=== PATIENT | female | born 1950 | race Caucasian/White ===

== ENCOUNTER 2018-07-02 18:01 | Emergency (ER) | payer MEDICARE, MEDICAID ==
[~2018-07-02] VITALS: Ht 170.2 cm; Wt 50.7 kg
[~2018-07-02 18:01] MED LIST: ASPI-1265 PO; ATEN-169 PO; LISI40TA4 PO; OMEP40CA37 PO; PER5325T PO
[2018-07-02 18:07] VITALS: BP 158/80
== END 2018-07-02 20:19 | disposition home or self-care (01) ==
LOC: ER 18:01
DX: L98.8 Other specified disorders of the skin and subcutaneous tissue (principal); I10 Essential (primary) hypertension; Z98.890 Other specified postprocedural states; Z79.899 Other long term (current) drug therapy; Z79.82 Long term (current) use of aspirin
CPT/HCPCS: 73140; 99284

== ENCOUNTER 2018-10-12 20:56 | Emergency (ER) | payer MEDICARE, MEDICAID ==
[~2018-10-12] VITALS: Ht 170.2 cm; Wt 116.0 kg
[~2018-10-12 20:56] MED LIST changes: +ARIP2TAB37 PO; +ATOR20TA PO; +OXYB5TAB11 PO
[2018-10-12 22:17] LABS: BASOPHILS % (AUTO) 0.2 % (0-1); EOSINOPHILS # (AUTO) 0.3 X10'3 (0-0.9); EOSINOPHILS % (AUTO) 2.6 % (0-6); HEMATOCRIT 34.1 % (35.0-45.0); HEMOGLOBIN 10.7 g/dl (12.0-16.0); LYMPHOCYTES # (AUTO) 1.2 X10'3 (1.1-4.8); LYMPHOCYTES % (AUTO) 10.6 % (21-51); MEAN CORPUSCULAR HEMOGLOBIN 24.2 PG (27.0-31.0); MEAN CORPUSCULAR HGB CONC 31.5 % (33.0-36.5); MEAN CORPUSCULAR VOLUME 76.8 FL (78-98); MEAN PLATELET VOLUME 7.7 FL (7.4-10.4); MONOCYTES # (AUTO) 0.6 X10'3 (0-0.9); MONOCYTES % (AUTO) 5.2 % (2-12); NEUTROPHILS # (AUTO) 9.5 X10'3 (1.8-7.7); NEUTROPHILS % (AUTO) 81.4 % (42-75); PLATELET COUNT 465 X10'3 (140-440); RED BLOOD COUNT 4.43 X10'6 (4.20-5.60); RED CELL DISTRIBUTION WIDTH 17.4 % (11.5-14.5); WHITE BLOOD COUNT 11.6 X10'3 (4.5-11.0)
[2018-10-12] MEDS ORDERED: normal saline 1000ML IV soln IVB ONE (22:20)
[2018-10-12] MEDS ORDERED: ondansetron/PF 4mg/2ml inj IV ONE (22:20)
[2018-10-12] MEDS ORDERED: morphine 4 MG/ML inj SYRINge IV ONE (22:20)
[2018-10-12] MEDS ORDERED: iohexol 300mg/ml 100ml inj. ONE (22:29)
[2018-10-12 22:42] LABS: ALANINE AMINOTRANSFERASE 24 U/L (12-78); ALBUMIN 3.7 G/DL (3.4-5.0); ALKALINE PHOSPHATASE 99 IU/L (46-116); ANION GAP 8 (8-16); ASPARTATE AMINO TRANSFERASE 19 U/L (10-37); BILIRUBIN,TOTAL 0.3 MG/DL (0.1-1.0); BLOOD UREA NITROGEN 17 MG/DL (7-18); BUN/CREATININE RATIO 15.9 (6.6-38.0); CALCIUM 9.1 MG/DL (8.5-10.1); CHLORIDE 101 MMOL/L (99-107); CREATININE 1.07 MG/DL (0.40-0.90); GLUCOSE 136 MG/DL (70-104); LIPASE 151 U/L (73-393); POTASSIUM 3.8 MMOL/L (3.5-5.1); SODIUM 138 MMOL/L (135-145); TOTAL CARBON DIOXIDE 28.9 MMOL/L (24-32); TOTAL PROTEIN 7.5 G/DL (6.4-8.2); TROPONIN I < 0.04 NG/ML (0.0-0.05); eGFR 51 ML/MIN
[2018-10-12 22:48] LABS: PARTIAL THROMBOPLASTIN TIME 27 SECONDS (22-32)
[2018-10-12] MEDS ORDERED: HYDR-4383 PO (23:51)
[2018-10-12 23:59] VITALS: BP 160/87
== END 2018-10-13 00:10 | disposition home or self-care (01) ==
LOC: ER 20:57
DX: K80.80 Other cholelithiasis without obstruction (principal); R10.10 Upper abdominal pain, unspecified; I10 Essential (primary) hypertension; I88.0 Nonspecific mesenteric lymphadenitis; Z98.890 Other specified postprocedural states; Z79.899 Other long term (current) drug therapy; Z79.82 Long term (current) use of aspirin
CPT/HCPCS: 36415; 74177; 80053; 83690; 84484; 85025; 85730; 93005; 96374; 96375; 99284; J2270; J2405; J7030; Q9967; 96361

== ENCOUNTER 2018-10-14 07:40 | Inpatient (IN) | payer MEDICARE, MEDICAID ==
[~2018-10-14] VITALS: Ht 170.2 cm; Wt 108.0 kg
[~2018-10-14 07:40] MED LIST changes: +HYDR-4383 PO
[2018-10-14] MEDS ORDERED: morphine 4 MG/ML inj SYRINge IV ONE ×2 (08:10→11:45)
[2018-10-14] MEDS ORDERED: ondansetron/PF 4mg/2ml inj IV ONE ×2 (08:10→11:45)
[2018-10-14 08:38] LABS: BASOPHILS # (AUTO) 0.1 X10'3 (0-0.2); BASOPHILS % (AUTO) 0.7 % (0-1); EOSINOPHILS # (AUTO) 0.3 X10'3 (0-0.9); EOSINOPHILS % (AUTO) 3.2 % (0-6); HEMATOCRIT 31.8 % (35.0-45.0); HEMOGLOBIN 10.1 g/dl (12.0-16.0); LYMPHOCYTES % (AUTO) 10.2 % (21-51); MEAN CORPUSCULAR HEMOGLOBIN 24.4 PG (27.0-31.0); MEAN CORPUSCULAR HGB CONC 31.6 % (33.0-36.5); MEAN CORPUSCULAR VOLUME 77.1 FL (78-98); MEAN PLATELET VOLUME 7.3 FL (7.4-10.4); MONOCYTES # (AUTO) 0.6 X10'3 (0-0.9); MONOCYTES % (AUTO) 6.1 % (2-12); NEUTROPHILS # (AUTO) 8.2 X10'3 (1.8-7.7); NEUTROPHILS % (AUTO) 79.8 % (42-75); PLATELET COUNT 426 X10'3 (140-440); RED BLOOD COUNT 4.13 X10'6 (4.20-5.60); RED CELL DISTRIBUTION WIDTH 17.1 % (11.5-14.5); WHITE BLOOD COUNT 10.2 X10'3 (4.5-11.0)
[2018-10-14 08:40] LABS: CLARITY,URINE SLIGHTLY CLOUDY (Clear); COLOR,URINE YELLOW (Yellow); GLUCOSE, URINE NEGATIVE (Neg); KETONES,URINE NEGATIVE (Neg); LEUKOCYTE ESTERASE ,URINE NEGATIVE (Neg); NITRITES, URINE NEGATIVE (Neg); OCCULT BLOOD,URINE NEGATIVE (Neg); PH,URINE 5.5 (4.8-8.0); PROTEIN,URINE NEGATIVE (Neg); UROBILINOGEN,URINE 0.2 E.U/dL (0.2-1.0)
[2018-10-14 08:44] LABS: UA COLLECTION TYPE CLN CATCH MIDSTREAM
[2018-10-14 08:49] LABS: ALANINE AMINOTRANSFERASE 23 U/L (12-78); ALBUMIN 3.3 G/DL (3.4-5.0); ALBUMIN/GLOBULIN RATIO 0.9 (1.1-1.5); ALKALINE PHOSPHATASE 98 IU/L (46-116); ANION GAP 7 (8-16); ASPARTATE AMINO TRANSFERASE 17 U/L (10-37); BILIRUBIN,TOTAL 0.3 MG/DL (0.1-1.0); BLOOD UREA NITROGEN 16 MG/DL (7-18); BUN/CREATININE RATIO 13.8 (6.6-38.0); CALCIUM 8.9 MG/DL (8.5-10.1); CHLORIDE 103 MMOL/L (99-107); CREATININE 1.16 MG/DL (0.40-0.90); GLUCOSE 104 MG/DL (70-104); POTASSIUM 3.8 MMOL/L (3.5-5.1); SODIUM 138 MMOL/L (135-145); TOTAL PROTEIN 6.9 G/DL (6.4-8.2); eGFR 46 ML/MIN
[2018-10-14 08:49] LABS: BACTERIA,URINE 1+ /HPF (Neg); CAL OXALATE CRYSTALS 1+ /HPF (NEGATIVE); MUCUS STRANDS FEW /LPF (Neg); RBC,URINE 0-2 /HPF (0-2); SQUAMOUS EPITHELIAL CELL,UR MANY /LPF (FEW); WBC,URINE 0-4 /HPF (0-4)
[2018-10-14 08:51] LABS: LIPASE 107 U/L (73-393); TROPONIN I < 0.04 NG/ML (0.0-0.05)
[2018-10-14 09:10] LABS: INR 1.1 INR; PROTHROMBIN TIME 10.7 SECONDS (9.0-12.0)
[2018-10-14] MEDS ORDERED: ceFOXitin 2 GM ADDvantage bag 100 ML IV ONE (11:45)
[2018-10-14] MEDS ORDERED: ondansetron/PF 4mg/2ml inj IV PRN (15:35)
[2018-10-14] MEDS ORDERED: acetaminophen 325mg tablet PO PRN (15:35)
[2018-10-14] MEDS ORDERED: mag hydrox/Alum hydrox/simeth 30ml oral suspension PO PRN (15:35)
[2018-10-14] MEDS: metroNIDAZOLE-Flagyl 500mg/NS 100 ML IV SCH ×2 (16:03→23:40)
[2018-10-14] MEDS: atenolol 25mg tablet PO SCH (16:03)
[2018-10-14] MEDS: normal saline 1000ml 1,000 ML IV SCH (16:03)
[2018-10-14 17:40] VITALS: BP 172/73
[2018-10-14 20:00] VITALS: BP 135/52
[2018-10-14] MEDS: levoFLOXACIN-Levaquin 500mg/D5 100 ML IV SCH (20:03)
[2018-10-14] MEDS: diatr meglu/diatrizoate 30ml oral sol.-(3 dose) bottle PO SCH (21:44)
[2018-10-15] VITALS: BP 154/61
[2018-10-15] MEDS: morphine 2 MG/ML inj. syringe IV PRN (01:04)
[2018-10-15] MEDS: normal saline 1000ml 1,000 ML IV SCH ×2 (05:15→20:38)
[2018-10-15 06:02] LABS: HEMATOCRIT 28.4 % (35.0-45.0); HEMOGLOBIN 9.4 g/dl (12.0-16.0); MEAN CORPUSCULAR HGB CONC 33.1 % (33.0-36.5); MEAN CORPUSCULAR VOLUME 75.6 FL (78-98); RED BLOOD COUNT 3.76 X10'6 (4.20-5.60); WHITE BLOOD COUNT 9.1 X10'3 (4.5-11.0)
[2018-10-15 06:03] LABS: BASOPHILS # (AUTO) 0.1 X10'3 (0-0.2); BASOPHILS % (AUTO) 0.6 % (0-1); EOSINOPHILS # (AUTO) 0.4 X10'3 (0-0.9); EOSINOPHILS % (AUTO) 4.3 % (0-6); LYMPHOCYTES # (AUTO) 1.6 X10'3 (1.1-4.8); LYMPHOCYTES % (AUTO) 17.8 % (21-51); MEAN PLATELET VOLUME 7.9 FL (7.4-10.4); MONOCYTES # (AUTO) 0.8 X10'3 (0-0.9); MONOCYTES % (AUTO) 8.7 % (2-12); NEUTROPHILS # (AUTO) 6.2 X10'3 (1.8-7.7); NEUTROPHILS % (AUTO) 68.6 % (42-75); PLATELET COUNT 351 X10'3 (140-440); RED CELL DISTRIBUTION WIDTH 15.7 % (11.5-14.5)
[2018-10-15 06:44] LABS: ALANINE AMINOTRANSFERASE 19 U/L (12-78); ALKALINE PHOSPHATASE 92 IU/L (46-116); ANION GAP 9 (8-16); ASPARTATE AMINO TRANSFERASE 15 U/L (10-37); BILIRUBIN,TOTAL 0.3 MG/DL (0.1-1.0); BLOOD UREA NITROGEN 15 MG/DL (7-18); BUN/CREATININE RATIO 12.5 (6.6-38.0); CALCIUM 8.6 MG/DL (8.5-10.1); CHLORIDE 103 MMOL/L (99-107); GLUCOSE 87 MG/DL (70-104); SODIUM 140 MMOL/L (135-145); TOTAL CARBON DIOXIDE 28.1 MMOL/L (24-32); TOTAL PROTEIN 6.1 G/DL (6.4-8.2); eGFR 45 ML/MIN
[2018-10-15 07:04] VITALS: BP 147/69
[2018-10-15] MEDS: oxybutynin 5mg tablet PO SCH (07:58)
[2018-10-15] MEDS: lisinopril 20mg tablet PO SCH (07:58)
[2018-10-15] MEDS: atorvastatin 20mg tablet PO SCH (07:58)
[2018-10-15] MEDS: atenolol 25mg tablet PO SCH (07:59)
[2018-10-15] MEDS: diatr meglu/diatrizoate 30ml oral sol.-(3 dose) bottle PO SCH ×2 (08:00→09:05)
[2018-10-15] MEDS: metroNIDAZOLE-Flagyl 500mg/NS 100 ML IV SCH ×3 (08:02→23:53)
[2018-10-15] MEDS: levoFLOXACIN-Levaquin 500mg/D5 100 ML IV SCH (09:39)
[2018-10-15 12:15] VITALS: BP 134/59
[2018-10-15 13:21] VITALS: BP 147/67
[2018-10-15 17:21] VITALS: BP 147/67
[2018-10-15 20:00] VITALS: BP 150/58
[2018-10-15] MEDS: pantoprazole 40mg Tablet.DR PO SCH (20:37)
[2018-10-16] VITALS: BP 177/54
[2018-10-16] MEDS: morphine 2 MG/ML inj. syringe IV PRN (01:05)
[2018-10-16 05:35] LABS: BASOPHILS % (AUTO) 0.5 % (0-1); EOSINOPHILS # (AUTO) 0.3 X10'3 (0-0.9); EOSINOPHILS % (AUTO) 4.1 % (0-6); HEMATOCRIT 29.6 % (35.0-45.0); HEMOGLOBIN 9.3 g/dl (12.0-16.0); LYMPHOCYTES # (AUTO) 1.5 X10'3 (1.1-4.8); LYMPHOCYTES % (AUTO) 19.5 % (21-51); MEAN CORPUSCULAR HEMOGLOBIN 24.3 PG (27.0-31.0); MEAN CORPUSCULAR HGB CONC 31.5 % (33.0-36.5); MEAN CORPUSCULAR VOLUME 77.3 FL (78-98); MEAN PLATELET VOLUME 7.8 FL (7.4-10.4); MONOCYTES # (AUTO) 0.6 X10'3 (0-0.9); MONOCYTES % (AUTO) 7.2 % (2-12); NEUTROPHILS # (AUTO) 5.4 X10'3 (1.8-7.7); NEUTROPHILS % (AUTO) 68.7 % (42-75); PLATELET COUNT 390 X10'3 (140-440); RED BLOOD COUNT 3.83 X10'6 (4.20-5.60); RED CELL DISTRIBUTION WIDTH 16.5 % (11.5-14.5); WHITE BLOOD COUNT 7.9 X10'3 (4.5-11.0)
[2018-10-16 05:55] LABS: ALANINE AMINOTRANSFERASE 19 U/L (12-78); ALBUMIN/GLOBULIN RATIO 0.9 (1.1-1.5); ALKALINE PHOSPHATASE 92 IU/L (46-116); ANION GAP 10 (8-16); ASPARTATE AMINO TRANSFERASE 23 U/L (10-37); BILIRUBIN,TOTAL 0.4 MG/DL (0.1-1.0); BLOOD UREA NITROGEN 16 MG/DL (7-18); BUN/CREATININE RATIO 13.1 (6.6-38.0); CALCIUM 8.8 MG/DL (8.5-10.1); CHLORIDE 105 MMOL/L (99-107); CREATININE 1.22 MG/DL (0.40-0.90); GLUCOSE 85 MG/DL (70-104); SODIUM 142 MMOL/L (135-145); TOTAL CARBON DIOXIDE 27.3 MMOL/L (24-32); TOTAL PROTEIN 6.3 G/DL (6.4-8.2); eGFR 44 ML/MIN
[2018-10-16 07:14] VITALS: BP 153/73
[2018-10-16] MEDS: atenolol 25mg tablet PO SCH (08:33)
[2018-10-16] MEDS: atorvastatin 20mg tablet PO SCH (08:33)
[2018-10-16] MEDS: oxybutynin 5mg tablet PO SCH (08:33)
[2018-10-16] MEDS: pantoprazole 40mg Tablet.DR PO SCH (08:33)
[2018-10-16] MEDS: metroNIDAZOLE-Flagyl 500mg/NS 100 ML IV SCH (08:34)
[2018-10-16] MEDS: lisinopril 20mg tablet PO SCH (08:34)
[2018-10-16] MEDS: levoFLOXACIN-Levaquin 500mg/D5 100 ML IV SCH (10:05)
[2018-10-16] MEDS: normal saline 1000ml 1,000 ML IV SCH (10:28)
[2018-10-16 11:45] VITALS: BP 151/56
[2018-10-16 14:18] VITALS: BP 149/68
[2018-10-16] MEDS ORDERED: lactobacillus rhamnosus 10,000 MMU CELLS/CAPSULE PO SCH (20:00)
[2018-10-17] MEDS ORDERED: metroNIDAZOLE 500mg tablet PO SCH
[2018-10-17] MEDS ORDERED: levoFLOXACIN 500mg tablet PO SCH (11:00)
== END 2018-10-16 17:01 | disposition home or self-care (01) | DRG 445 ==
LOC: ER 07:41 → ED HOLD 15:34 → SUR 3N 17:34
PROVIDERS: ADMIT Internal Medicine; ATTEND Family Medicine
DX: K80.20 Calculus of gallbladder without cholecystitis without obstruction (principal); K65.4 Sclerosing mesenteritis; D47.9 Neoplasm of uncertain behavior of lymphoid, hematopoietic and related tissue, unspecified; E66.9 Obesity, unspecified; E78.5 Hyperlipidemia, unspecified; F32.9 Major depressive disorder, single episode, unspecified; R59.9 Enlarged lymph nodes, unspecified; M72.8 Other fibroblastic disorders; I10 Essential (primary) hypertension; K21.9 Gastro-esophageal reflux disease without esophagitis; Z79.899 Other long term (current) drug therapy; Z79.82 Long term (current) use of aspirin; Z71.3 Dietary counseling and surveillance; Z68.37 Body mass index [BMI] 37.0-37.9, adult
CPT/HCPCS: 36415; 71045; 74176; 76700; 80053; 81001; 83690; 83880; 84484; 85025; 85610; 87070; 93005; 96365; 96375; 96376; 99285; G0378; J0694; J1956; J2270; J2405; J3490; J7030; Q9963

== ENCOUNTER 2018-12-15 20:51 | Inpatient (IN) | payer MEDICARE, MEDICAID | END 2018-12-17 15:20 | disposition home or self-care (01) | LOC: ER 20:51 → ED HOLD 12-16 02:35 → SUR 3N 12-16 03:50 | PROC: 0DB68ZX Excision of Stomach, Via Natural or Artificial Opening Endoscopic, Diagnostic (ICD-10-PCS; principal; ~2018-12-15) | DX: K26.9 Duodenal ulcer, unspecified as acute or chronic, without hemorrhage or perforation (principal); D62 Acute posthemorrhagic anemia; K29.70 Gastritis, unspecified, without bleeding; R10.13 Epigastric pain; I10 Essential (primary) hypertension ==

== ENCOUNTER 2020-11-06 05:28 | Emergency (ER) | payer MEDICARE, MEDICAID ==
[~2020-11-06] VITALS: Ht 170.2 cm; Wt 136.3 kg
[~2020-11-06 05:28] MED LIST changes: -ASPI-1265 PO; +BUPR150T14 PO; -HYDR-4383 PO; +MAG30ORA PO; -OMEP40CA37 PO; -OXYB5TAB11 PO; +OXYB5TAB16 PO; +PANT40TA54 PO; -PER5325T PO
--- NOTE | 2020-11-06 05:44 | NUR ---
REPORTS TOOTH PAIN ALL NIGHT, MISSING TEETH LAST DENTAL VISIT OVER 10 YEAR
--- NOTE | 2020-11-06 06:38 | NUR ---
DR. LUNA AT BEDSIDE.
[2020-11-06] MEDS ORDERED: naproxen 500mg tablet PO ONE (06:40)
[2020-11-06] MEDS ORDERED: amox tr/potassium clavulanate 875/125mg TAB PO ONE (06:40)
[2020-11-06] MEDS ORDERED: HYDROcodone/acetaminophen 5mg/325mg tablet PO ONE (06:40)
[2020-11-06] MEDS ORDERED: LISI-600 PO (06:53)
[2020-11-06] MEDS ORDERED: NAPR-56 PO (06:53)
[2020-11-06] MEDS ORDERED: AMOX-422 PO (06:53)
[2020-11-06] MEDS ORDERED: lisinopril 10 MG tablet PO ONE (06:55)
[2020-11-06 07:47] VITALS: BP 189/77
== END 2020-11-06 07:50 | disposition home or self-care (01) ==
LOC: ER 05:29
DX: K04.7 Periapical abscess without sinus (principal); K08.89 Other specified disorders of teeth and supporting structures; K02.9 Dental caries, unspecified; I10 Essential (primary) hypertension; F17.200 Nicotine dependence, unspecified, uncomplicated; Z79.2 Long term (current) use of antibiotics; Z79.899 Other long term (current) drug therapy
CPT/HCPCS: 99284

== ENCOUNTER 2022-08-28 17:17 | Emergency (ER) | payer MEDICARE, MEDICAID ==
[~2022-08-28] VITALS: Ht 170.2 cm; Wt 90.0 kg
[~2022-08-28 17:17] MED LIST changes: +APIX5TAB3 PO; -ARIP2TAB37 PO; -ATEN-169 PO; +ATEN50TA8 PO; -ATOR20TA PO; +ATOR20TA66 PO; +BENA20TA82 PO; +BUPR-72 PO; -BUPR150T14 PO; +LACT1CAP26 PO; -LISI40TA4 PO; -MAG30ORA PO; +NOR5T PO; -OXYB5TAB16 PO; +SERT-432 PO
[2022-08-28] MEDS ORDERED: diltiazem 5mg/ml 5ml inj. IV ONE ×2 (18:00→18:55)
[2022-08-28] MEDS ORDERED: diltiazem-NS 100mg/100ml 100 ML IV ONE (18:00)
[2022-08-28 18:21] LABS: BASOPHILS # (AUTO) 0.1 X10'3 (0-0.2); BASOPHILS % (AUTO) 0.6 % (0-1); EOSINOPHILS # (AUTO) 0.2 X10'3 (0-0.9); EOSINOPHILS % (AUTO) 1.8 % (0-6); HEMATOCRIT 39.6 % (35.0-45.0); HEMOGLOBIN 12.8 g/dl (12.0-16.0); LYMPHOCYTES # (AUTO) 1.6 X10'3 (1.1-4.8); LYMPHOCYTES % (AUTO) 14.8 % (21-51); MEAN CORPUSCULAR HEMOGLOBIN 28.9 PG (27.0-31.0); MEAN CORPUSCULAR HGB CONC 32.4 g/dL (33.0-36.5); MEAN CORPUSCULAR VOLUME 89.2 FL (78-98); MEAN PLATELET VOLUME 7.4 FL (7.4-10.4); MONOCYTES # (AUTO) 0.7 X10'3 (0-0.9); MONOCYTES % (AUTO) 6.8 % (2-12); NEUTROPHILS # (AUTO) 8.1 X10'3 (1.8-7.7); PLATELET COUNT 411 X10'3 (140-440); RED BLOOD COUNT 4.44 X10'6 (4.20-5.60); RED CELL DISTRIBUTION WIDTH 15.7 % (11.5-14.5); WHITE BLOOD COUNT 10.7 X10'3 (4.5-11.0)
[2022-08-28 18:42] LABS: ALANINE AMINOTRANSFERASE 58 U/L (12-78); ALBUMIN 3.6 G/DL (3.4-5.0); ALBUMIN/GLOBULIN RATIO 0.9 (1.1-1.5); ALKALINE PHOSPHATASE 113 IU/L (46-116); ANION GAP 10 (8-16); ASPARTATE AMINO TRANSFERASE 41 U/L (10-37); BILIRUBIN,TOTAL 0.6 MG/DL (0.1-1.0); BLOOD UREA NITROGEN 18 MG/DL (7-18); BUN/CREATININE RATIO 12.1 (6.6-38.0); CALCIUM 9.6 MG/DL (8.5-10.1); CHLORIDE 107 MMOL/L (99-107); CREATININE 1.49 MG/DL (0.40-0.90); GLUCOSE 119 MG/DL (70-104); POTASSIUM 4.4 MMOL/L (3.5-5.1); SODIUM 142 MMOL/L (135-145); TOTAL CARBON DIOXIDE 24.7 MMOL/L (24-32); TOTAL PROTEIN 7.4 G/DL (6.4-8.2); eGFR 34 ML/MIN
[2022-08-28] MEDS ORDERED: etomidate 2mg/ml inj. IV ONE (19:30)
[2022-08-28 19:41] LABS: MAGNESIUM 2.1 MG/DL (1.5-2.4)
[2022-08-28 21:04] VITALS: BP 131/74
== END 2022-08-28 21:07 | disposition home or self-care (01) ==
LOC: ER 17:17
DX: I48.91 Unspecified atrial fibrillation (principal); F03.90 Unspecified dementia, unspecified severity, without behavioral disturbance, psychotic disturbance, mood disturbance, and anxiety; Z79.899 Other long term (current) drug therapy
CPT/HCPCS: 36415; 71045; 80053; 83735; 83880; 84484; 85025; 92960; 93005; 96365; 96366; 96375; 96376; 99285; J3490; J7030; 94760; A4615; A4620

== ENCOUNTER 2022-08-29 08:46 | Emergency (ER) | payer MEDICARE, MEDICAID ==
[~2022-08-29] VITALS: Ht 170.2 cm; Wt 90.0 kg
[2022-08-29 11:07] LABS: BASOPHILS % (AUTO) 0.3 % (0-1); EOSINOPHILS # (AUTO) 0.1 X10'3 (0-0.9); EOSINOPHILS % (AUTO) 1.1 % (0-6); HEMATOCRIT 39.5 % (35.0-45.0); HEMOGLOBIN 13.1 g/dl (12.0-16.0); LYMPHOCYTES # (AUTO) 1.4 X10'3 (1.1-4.8); LYMPHOCYTES % (AUTO) 13.8 % (21-51); MEAN CORPUSCULAR HEMOGLOBIN 29.3 PG (27.0-31.0); MEAN CORPUSCULAR HGB CONC 33.1 g/dL (33.0-36.5); MEAN CORPUSCULAR VOLUME 88.5 FL (78-98); MEAN PLATELET VOLUME 7.5 FL (7.4-10.4); MONOCYTES # (AUTO) 0.7 X10'3 (0-0.9); MONOCYTES % (AUTO) 7.1 % (2-12); NEUTROPHILS # (AUTO) 8.1 X10'3 (1.8-7.7); NEUTROPHILS % (AUTO) 77.7 % (42-75); PLATELET COUNT 378 X10'3 (140-440); RED BLOOD COUNT 4.46 X10'6 (4.20-5.60); RED CELL DISTRIBUTION WIDTH 15.4 % (11.5-14.5); WHITE BLOOD COUNT 10.4 X10'3 (4.5-11.0)
[2022-08-29 11:17] LABS: ALANINE AMINOTRANSFERASE 60 U/L (12-78); ALBUMIN 3.7 G/DL (3.4-5.0); ALKALINE PHOSPHATASE 121 IU/L (46-116); ANION GAP 11 (8-16); ASPARTATE AMINO TRANSFERASE 46 U/L (10-37); BILIRUBIN,TOTAL 0.8 MG/DL (0.1-1.0); BLOOD UREA NITROGEN 21 MG/DL (7-18); BUN/CREATININE RATIO 13.6 (6.6-38.0); CALCIUM 9.4 MG/DL (8.5-10.1); CHLORIDE 106 MMOL/L (99-107); CREATININE 1.54 MG/DL (0.40-0.90); GLUCOSE 94 MG/DL (70-104); POTASSIUM 4.8 MMOL/L (3.5-5.1); SODIUM 143 MMOL/L (135-145); TOTAL CARBON DIOXIDE 26.5 MMOL/L (24-32); TOTAL PROTEIN 7.5 G/DL (6.4-8.2); eGFR 33 ML/MIN
[2022-08-29] MEDS ORDERED: furosemide 20MG tablet PO ONE (13:45)
[2022-08-29] MEDS ORDERED: metoprolol succinate 25mg (24-HOUR) SR. Tablet PO ONE (13:45)
[2022-08-29 15:14] VITALS: BP 139/88
== END 2022-08-29 14:45 | disposition home or self-care (01) ==
LOC: ER 08:47
DX: R06.02 Shortness of breath (principal); I10 Essential (primary) hypertension
CPT/HCPCS: 36415; 71045; 80053; 83880; 84484; 85025; 93005; 99285

== ENCOUNTER 2022-09-22 13:08 | Inpatient (IN) | payer MEDICARE, MEDICAID ==
[~2022-09-22] VITALS: Ht 170.2 cm; Wt 113.6 kg
[2022-09-22] MEDS ORDERED: pantoprazole 40MG/NS 100ML BAG 100 ML IV ONE (15:35)
[2022-09-22] MEDS ORDERED: normal saline 1000ML IV soln IVB ONE (15:35)
[2022-09-22 16:01] LABS: BASOPHILS # (AUTO) 0.1 X10'3 (0-0.2); BASOPHILS % (AUTO) 0.5 % (0-1); EOSINOPHILS # (AUTO) 0.2 X10'3 (0-0.9); EOSINOPHILS % (AUTO) 1.5 % (0-6); HEMATOCRIT 37.7 % (35.0-45.0); HEMOGLOBIN 12.4 g/dl (12.0-16.0); LYMPHOCYTES # (AUTO) 1.1 X10'3 (1.1-4.8); LYMPHOCYTES % (AUTO) 9.8 % (21-51); MEAN CORPUSCULAR HEMOGLOBIN 28.2 PG (27.0-31.0); MEAN CORPUSCULAR HGB CONC 32.9 g/dL (33.0-36.5); MEAN CORPUSCULAR VOLUME 85.7 FL (78-98); MEAN PLATELET VOLUME 7.8 FL (7.4-10.4); MONOCYTES # (AUTO) 0.8 X10'3 (0-0.9); MONOCYTES % (AUTO) 7.3 % (2-12); NEUTROPHILS # (AUTO) 9.1 X10'3 (1.8-7.7); NEUTROPHILS % (AUTO) 80.9 % (42-75); PLATELET COUNT 332 X10'3 (140-440); RED CELL DISTRIBUTION WIDTH 16.2 % (11.5-14.5); WHITE BLOOD COUNT 11.3 X10'3 (4.5-11.0)
[2022-09-22 16:13] LABS: ALANINE AMINOTRANSFERASE 19 U/L (12-78); ALBUMIN 3.4 G/DL (3.4-5.0); ALBUMIN/GLOBULIN RATIO 0.9 (1.1-1.5); ALKALINE PHOSPHATASE 98 IU/L (46-116); ANION GAP 6 (8-16); ASPARTATE AMINO TRANSFERASE 25 U/L (10-37); BILIRUBIN,TOTAL 0.5 MG/DL (0.1-1.0); BLOOD UREA NITROGEN 16 MG/DL (7-18); BUN/CREATININE RATIO 13.3 (6.6-38.0); CALCIUM 9.1 MG/DL (8.5-10.1); CHLORIDE 104 MMOL/L (99-107); GLUCOSE 101 MG/DL (70-104); POTASSIUM 3.9 MMOL/L (3.5-5.1); SODIUM 141 MMOL/L (135-145); TOTAL CARBON DIOXIDE 31.2 MMOL/L (24-32); eGFR 44 ML/MIN
[2022-09-22] MEDS ORDERED: acetaminophen 325mg tablet PO PRN ×2 (20:10)
[2022-09-22] MEDS ORDERED: bisacodyl 10mg suppository rectal RC PRN (20:10)
[2022-09-22] MEDS ORDERED: diphenhydrAMINE 25mg capsule PO PRN (20:10)
[2022-09-22] MEDS ORDERED: magnesium hydroxide 30ml (MOM) UD suspension PO PRN (20:10)
[2022-09-22] MEDS ORDERED: acetaminophen 650mg rectal suppository RC PRN (20:10)
[2022-09-22] MEDS ORDERED: ondansetron 4mg rapidly disintigrating tab PO PRN (20:10)
[2022-09-22] MEDS ORDERED: HYDROmorphone inj. 0.5 MG/0.5 ML DISP.SYRIN IV PRN (20:10)
[2022-09-22] MEDS: normal saline 1000ml 1,000 ML IV SCH (20:10)
[2022-09-22] MEDS ORDERED: ondansetron/PF 4mg/2ml inj IV PRN (20:10)
[2022-09-22] MEDS ORDERED: HYDROcodone/acetaminophen 5mg/325mg tablet PO PRN (20:10)
[2022-09-22] MEDS ORDERED: mag hydrox/Alum hydrox/simeth 30ml oral suspension PO PRN (20:10)
[2022-09-22] MEDS ORDERED: morphine 2 MG/ML inj. syringe IV PRN ×2 (20:10)
[2022-09-22] MEDS ORDERED: diphenhydrAMINE 50 mg/ml inj IV PRN (20:10)
[2022-09-22] MEDS ORDERED: diltiazem-NS 100mg/100ml 100 ML IV SCH (20:15)
[2022-09-22 20:33] LABS: CLARITY,URINE SLIGHTLY CLOUDY (Clear); COLOR,URINE YELLOW (Yellow); GLUCOSE, URINE NEGATIVE (Neg); KETONES,URINE TRACE mg/dl (Neg); LEUKOCYTE ESTERASE ,URINE NEGATIVE (Neg); NITRITES, URINE NEGATIVE (Neg); OCCULT BLOOD,URINE NEGATIVE (Neg); PH,URINE 8.5 (4.8-8.0); PROTEIN,URINE NEGATIVE (Neg); UROBILINOGEN,URINE 0.2 E.U/dL (0.2-1.0)
[2022-09-22 20:36] LABS: UA COLLECTION TYPE CLN CATCH MIDSTREAM
[2022-09-22 20:38] LABS: AMORPHOUS PHOSPHATES 3+; BACTERIA,URINE 1+ /HPF (Neg); RBC,URINE 0-2 /HPF (0-2); SQUAMOUS EPITHELIAL CELL,UR FEW /LPF (FEW); WBC,URINE 0-4 /HPF (0-4)
[2022-09-22 20:58] LABS: URINE AMPHETAMINE SCREEN NEGATIVE (Neg); URINE BARBITUATE SCREEN NEGATIVE (Neg); URINE BENZODIAZEPINES SCREEN NEGATIVE (Neg); URINE CANNABINOID SCREEN NEGATIVE (Neg); URINE COCAINE SCREEN NEGATIVE (Neg); URINE METHADONE SCREEN NEGATIVE (Neg); URINE OPIATE SCREEN NEGATIVE (Neg); URINE PHENCYCLIDINE SCREEN NEGATIVE (Neg)
[2022-09-22 21:20] LABS: CREATINE KINASE 27 U/L (26-192); LIPASE 72 U/L (73-393); MAGNESIUM 2.2 MG/DL (1.5-2.4); PHOSPHORUS 3.3 MG/DL (2.3-4.5)
[2022-09-22] MEDS: niCARDipine-NS 40mg/200ml IVPB 200 ML IV SCH (22:30)
[2022-09-22] MEDS ORDERED: ATEN-27 PO (23:19)
[2022-09-22] MEDS ORDERED: AMLO5TAB16 PO (23:26)
[2022-09-22] MEDS ORDERED: LACT1CAP26 PO (23:27)
--- NOTE | 2022-09-23 03:15 | NUR ---
PT WEANED OFF NICARDIPINE GTT AT THIS TIME FOR SPB < 140
[2022-09-23 03:44] LABS: BASOPHILS % (AUTO) 0.4 % (0-1); EOSINOPHILS # (AUTO) 0.2 X10'3 (0-0.9); HEMATOCRIT 41.8 % (35.0-45.0); HEMOGLOBIN 13.4 g/dl (12.0-16.0); LYMPHOCYTES # (AUTO) 1.6 X10'3 (1.1-4.8); LYMPHOCYTES % (AUTO) 13.2 % (21-51); MEAN CORPUSCULAR HEMOGLOBIN 27.7 PG (27.0-31.0); MEAN CORPUSCULAR VOLUME 86.5 FL (78-98); MEAN PLATELET VOLUME 7.9 FL (7.4-10.4); MONOCYTES % (AUTO) 8.5 % (2-12); NEUTROPHILS % (AUTO) 75.9 % (42-75); PLATELET COUNT 342 X10'3 (140-440); RED BLOOD COUNT 4.84 X10'6 (4.20-5.60); WHITE BLOOD COUNT 11.9 X10'3 (4.5-11.0)
[2022-09-23 04:09] LABS: ALANINE AMINOTRANSFERASE 17 U/L (12-78); ALBUMIN 3.6 G/DL (3.4-5.0); ALBUMIN/GLOBULIN RATIO 0.9 (1.1-1.5); ALKALINE PHOSPHATASE 97 IU/L (46-116); ANION GAP 13 (8-16); ASPARTATE AMINO TRANSFERASE 24 U/L (10-37); BILIRUBIN,TOTAL 0.7 MG/DL (0.1-1.0); BLOOD UREA NITROGEN 12 MG/DL (7-18); BUN/CREATININE RATIO 11.1 (6.6-38.0); CALCIUM 9.3 MG/DL (8.5-10.1); CHLORIDE 105 MMOL/L (99-107); CREATININE 1.08 MG/DL (0.40-0.90); GLUCOSE 111 MG/DL (70-104); POTASSIUM 3.5 MMOL/L (3.5-5.1); SODIUM 143 MMOL/L (135-145); TOTAL CARBON DIOXIDE 25.1 MMOL/L (24-32); TOTAL PROTEIN 7.5 G/DL (6.4-8.2); eGFR 50 ML/MIN
--- NOTE | 2022-09-23 06:00 | NUR ---
PT ATTEMPTING TO CLIM OUT OF BED, PT ASST. BACK TO BED AND UPDATED, PT ADVISED TO CALL FOR ASST. AND CALL LIGHT ATTACHED TO GOWN
[2022-09-23] MEDS ORDERED: lisinopril 20mg tablet PO SCH (08:00)
[2022-09-23] MEDS ORDERED: docusate sod 100mg capsule PO SCH (08:00)
[2022-09-23] MEDS: pantoprazole 40MG/NS 100ML BAG 100 ML IV SCH ×2 (08:00→22:14)
[2022-09-23] MEDS ORDERED: pantoprazole 40mg Tablet.DR PO SCH (08:00)
[2022-09-23] MEDS: niCARDipine-NS 40mg/200ml IVPB 200 ML IV SCH (08:01)
[2022-09-23] MEDS: atorvastatin 20mg tablet PO SCH (08:51)
[2022-09-23] MEDS: amLODIPine 5mg tablet PO SCH (08:51)
[2022-09-23] MEDS: buPROPion SR 150mg tablet PO SCH ×2 (08:53→20:55)
[2022-09-23] MEDS: sertraline 25mg tablet PO SCH (08:54)
[2022-09-23] MEDS ORDERED: ALPRAZolam 0.5mg tablet PO PRN (10:20)
--- NOTE | 2022-09-23 19:20 | NUR ---
Patient in room ED 9. I have received report from DRALIN HUFFMAN RN and had the opportunity to ask questions and assume patient care. Addendum: 09/23/22 at 1921 by Toya Whyte RN Amended: Links added.
[2022-09-23 19:30] VITALS: BP 186/87
[2022-09-23] MEDS: normal saline 1000ml 1,000 ML IV SCH (20:14)
[2022-09-23] MEDS: metroNIDAZOLE-Flagyl 500mg/NS 100 ML IV SCH (20:55)
[2022-09-23] MEDS: temazepam 15mg capsule PO PRN (20:55)
[2022-09-23] MEDS: atenolol 25mg tablet PO SCH (21:28)
[2022-09-23 22:00] VITALS: BP 147/57
[2022-09-23] MEDS: ciprofloxacin lact 400MG/200ML 200 ML IV SCH (22:13)
[2022-09-24 02:00] VITALS: BP 140/52
--- NOTE | 2022-09-24 02:39 | NUR ---
Student documentation: I have reviewed and agree with all interventions, assessments performed and documented by LEXIS PHELPS RN STUDENT. Addendum: 09/24/22 at 0239 by Toya Whyte RN Amended: Links added.
--- NOTE | 2022-09-24 02:41 | NUR ---
Student Medication Administration: For this medication-pass time frame, all medication were reviewed, dispensed, administered and documented per hospital policy by KRISTAN CERVANTES RN STUDENT. Addendum: 09/24/22 at 0243 by Toya Whyte RN Amended: Links added.
--- NOTE | 2022-09-24 06:14 | NUR ---
Problems reprioritized. Patient report given, questions answered & plan of care reviewed with ZEE MCRAE. Addendum: 09/24/22 at 0615 by Toya Whyte RN Amended: Links added.
[2022-09-24 06:16] LABS: BASOPHILS # (AUTO) 0.1 X10'3 (0-0.2); BASOPHILS % (AUTO) 0.7 % (0-1); EOSINOPHILS # (AUTO) 0.2 X10'3 (0-0.9); EOSINOPHILS % (AUTO) 2.4 % (0-6); HEMOGLOBIN 13.1 g/dl (12.0-16.0); LYMPHOCYTES % (AUTO) 10.5 % (21-51); MEAN CORPUSCULAR HEMOGLOBIN 27.7 PG (27.0-31.0); MEAN CORPUSCULAR HGB CONC 32.1 g/dL (33.0-36.5); MEAN CORPUSCULAR VOLUME 86.3 FL (78-98); MONOCYTES # (AUTO) 0.7 X10'3 (0-0.9); MONOCYTES % (AUTO) 7.9 % (2-12); NEUTROPHILS # (AUTO) 7.3 X10'3 (1.8-7.7); NEUTROPHILS % (AUTO) 78.5 % (42-75); PLATELET COUNT 356 X10'3 (140-440); RED BLOOD COUNT 4.75 X10'6 (4.20-5.60); RED CELL DISTRIBUTION WIDTH 16.1 % (11.5-14.5); WHITE BLOOD COUNT 9.3 X10'3 (4.5-11.0)
--- NOTE | 2022-09-24 06:36 | NUR ---
Patient in room [facility] 348. I have received report from ZEE Pittman and had the opportunity to ask questions and assume patient care.
[2022-09-24 06:41] VITALS: BP 152/65
[2022-09-24 06:54] LABS: ALANINE AMINOTRANSFERASE 18 U/L (12-78); ALBUMIN 3.4 G/DL (3.4-5.0); ALBUMIN/GLOBULIN RATIO 0.9 (1.1-1.5); ALKALINE PHOSPHATASE 97 IU/L (46-116); ANION GAP 9 (8-16); ASPARTATE AMINO TRANSFERASE 25 U/L (10-37); BILIRUBIN,TOTAL 0.7 MG/DL (0.1-1.0); BLOOD UREA NITROGEN 16 MG/DL (7-18); BUN/CREATININE RATIO 14.2 (6.6-38.0); CALCIUM 9.5 MG/DL (8.5-10.1); CHLORIDE 104 MMOL/L (99-107); CREATININE 1.13 MG/DL (0.40-0.90); GLUCOSE 89 MG/DL (70-104); POTASSIUM 3.7 MMOL/L (3.5-5.1); SODIUM 139 MMOL/L (135-145); TOTAL CARBON DIOXIDE 26.5 MMOL/L (24-32); TOTAL PROTEIN 7.1 G/DL (6.4-8.2); eGFR 47 ML/MIN
[2022-09-24] MEDS: buPROPion SR 150mg tablet PO SCH ×2 (07:43→20:06)
[2022-09-24] MEDS: sertraline 25mg tablet PO SCH (07:43)
[2022-09-24] MEDS: atorvastatin 20mg tablet PO SCH (07:44)
[2022-09-24] MEDS: amLODIPine 5mg tablet PO SCH (07:44)
[2022-09-24] MEDS: lisinopril 20mg tablet PO SCH (07:44)
[2022-09-24] MEDS: pantoprazole 40MG/NS 100ML BAG 100 ML IV SCH (07:45)
[2022-09-24] MEDS: metroNIDAZOLE-Flagyl 500mg/NS 100 ML IV SCH (07:45)
[2022-09-24] MEDS: ciprofloxacin lact 400MG/200ML 200 ML IV SCH (08:45)
--- NOTE | 2022-09-24 09:35 | NUR ---
Patient pulled out x2 IV and refusing to restart IV. Explained to patient need for IV access and abx. Patient continues to refuse. Patient glaring at staff, pouting lips and mostly not speaking when asked questions. Patient will nod head or shake head. Dr. Zheng aware. Patients daughter was also in to see patient and tearfully stated "shes's in a bad mood. She does this sometimes it's her alzheimers." Will continue to monitor.
--- NOTE | 2022-09-24 11:27 | NUR ---
Patient appears to be agitated. Getting up out of bed and tabs alarm going off. When asked if patient needed any assistance patient does not reply and grabs things from table aggressively. Educated patient tabs alarm placed with safety and to use call button if she needed anything. Patient rolled eyes and turned head away. Will continue to monitor.
--- NOTE | 2022-09-24 12:36 | NUR ---
Patient continues to refuse to have IV inserted.
[2022-09-24 12:38] VITALS: BP 169/80
--- NOTE | 2022-09-24 13:39 | NUR ---
Patient refusing to have tele monitor removed.
--- NOTE | 2022-09-24 13:44 | NUR ---
PAGER ID: [phone] MESSAGE: 348A- TreySuhailLana- pt daughter states pt needs higher level of care than she can provide at home. She is hoping to get her into a "memory care center."- Rom [id number]
--- NOTE | 2022-09-24 13:56 | NUR ---
PAGER ID: [phone] MESSAGE: 348A- Lana Yang- pt agitated, aggressive and packing her things wanting to leave. Will not take her xanax po and she has not IV access- Rom [id number]
[2022-09-24] MEDS ORDERED: LORazepam 0.5 MG tablet PO PRN (14:15)
[2022-09-24] MEDS ORDERED: LORazepam 2 mg/ml vial IV PRN (14:15)
[2022-09-24] MEDS ORDERED: ziprasidone IM 20mg inj **IM only IM PRN (14:15)
--- NOTE | 2022-09-24 14:20 | NUR ---
PAGER ID: [phone] MESSAGE: 348A- Lana Yang- will not take ativan PO and has no IV access. Refusing everything. - Rom [id number]
[2022-09-24 18:00] VITALS: BP 167/85
--- NOTE | 2022-09-24 18:16 | NUR ---
Problems reprioritized. Patient report given, questions answered & plan of care reviewed with ZEE Pittman.
--- NOTE | 2022-09-24 18:48 | NUR ---
Patient in room [facility] 348. I have received report from ZEE MCRAE and had the opportunity to ask questions and assume patient care. Addendum: 09/24/22 at 1849 by Toya Whyte RN Amended: Links added.
[2022-09-24] MEDS: atenolol 25mg tablet PO SCH (20:06)
[2022-09-24] MEDS: apixaban 5mg tablet PO SCH (20:07)
[2022-09-24] MEDS: temazepam 15mg capsule PO PRN (20:07)
[2022-09-24 22:00] VITALS: BP 170/72
[2022-09-25] MEDS: normal saline 1000ml 1,000 ML IV SCH (00:14)
--- NOTE | 2022-09-25 00:52 | NUR ---
pt awake alert and pleasant without s&s of distress at this time.
--- NOTE | 2022-09-25 02:58 | NUR ---
Student documentation: I have reviewed and agree with all interventions, assessments performed and documented by KRISTAN CERVANTES RN STUDENT.Student Medication Administration: For this medication-pass time frame, all medication were reviewed, dispensed, administered and documented per hospital policy by KRISTAN CERVANTES RN STUDENT. Addendum: 09/25/22 at 0259 by Toya Whyte RN Amended: Links added.
--- NOTE | 2022-09-25 06:02 | NUR ---
Problems reprioritized. Patient report given, questions answered & plan of care reviewed with ZEE MCRAE. Addendum: 09/25/22 at 0603 by Toya Whyte RN Amended: Links added.
--- NOTE | 2022-09-25 06:10 | NUR ---
Patient in room [facility] 348. I have received report from ZEE KING and had the opportunity to ask questions and assume patient care.
[2022-09-25 06:25] LABS: BASOPHILS # (AUTO) 0.1 X10'3 (0-0.2); BASOPHILS % (AUTO) 0.8 % (0-1); EOSINOPHILS # (AUTO) 0.3 X10'3 (0-0.9); EOSINOPHILS % (AUTO) 3.4 % (0-6); HEMATOCRIT 38.9 % (35.0-45.0); HEMOGLOBIN 12.9 g/dl (12.0-16.0); LYMPHOCYTES # (AUTO) 1.5 X10'3 (1.1-4.8); MEAN CORPUSCULAR HEMOGLOBIN 28.6 PG (27.0-31.0); MEAN CORPUSCULAR HGB CONC 33.1 g/dL (33.0-36.5); MEAN CORPUSCULAR VOLUME 86.3 FL (78-98); MEAN PLATELET VOLUME 7.7 FL (7.4-10.4); MONOCYTES # (AUTO) 0.8 X10'3 (0-0.9); NEUTROPHILS # (AUTO) 5.8 X10'3 (1.8-7.7); NEUTROPHILS % (AUTO) 68.8 % (42-75); PLATELET COUNT 338 X10'3 (140-440); RED CELL DISTRIBUTION WIDTH 16.2 % (11.5-14.5); WHITE BLOOD COUNT 8.5 X10'3 (4.5-11.0)
[2022-09-25 06:29] VITALS: BP 170/96
[2022-09-25 06:37] LABS: ALANINE AMINOTRANSFERASE 17 U/L (12-78); ALBUMIN 3.3 G/DL (3.4-5.0); ALBUMIN/GLOBULIN RATIO 0.9 (1.1-1.5); ALKALINE PHOSPHATASE 92 IU/L (46-116); ANION GAP 10 (8-16); ASPARTATE AMINO TRANSFERASE 26 U/L (10-37); BILIRUBIN,TOTAL 0.5 MG/DL (0.1-1.0); BLOOD UREA NITROGEN 22 MG/DL (7-18); BUN/CREATININE RATIO 17.2 (6.6-38.0); CALCIUM 9.1 MG/DL (8.5-10.1); CHLORIDE 104 MMOL/L (99-107); CREATININE 1.28 MG/DL (0.40-0.90); GLUCOSE 82 MG/DL (70-104); POTASSIUM 3.6 MMOL/L (3.5-5.1); SODIUM 141 MMOL/L (135-145); TOTAL CARBON DIOXIDE 27.2 MMOL/L (24-32); TOTAL PROTEIN 6.8 G/DL (6.4-8.2); eGFR 41 ML/MIN
[2022-09-25] MEDS: atorvastatin 20mg tablet PO SCH (07:01)
[2022-09-25] MEDS: apixaban 5mg tablet PO SCH ×2 (07:01→21:00)
[2022-09-25] MEDS: clindamycin 150mg capsule PO SCH ×3 (07:01→20:59)
[2022-09-25] MEDS: buPROPion SR 150mg tablet PO SCH ×2 (07:01→20:59)
[2022-09-25] MEDS: amLODIPine 5mg tablet PO SCH (07:02)
[2022-09-25] MEDS: sertraline 25mg tablet PO SCH (07:02)
[2022-09-25] MEDS: lisinopril 20mg tablet PO SCH (07:02)
[2022-09-25] MEDS: pantoprazole 40mg Tablet.DR PO SCH ×2 (07:03→21:00)
[2022-09-25] MEDS: HYDROcodone/acetaminophen 10/325mg tab PO PRN ×2 (10:02→20:59)
[2022-09-25 11:59] VITALS: BP 152/79
[2022-09-25 18:00] VITALS: BP 140/80
--- NOTE | 2022-09-25 18:25 | NUR ---
Problems reprioritized. Patient report given, questions answered & plan of care reviewed with ZEE Keys.
[2022-09-25 20:57] VITALS: BP 166/71
[2022-09-25] MEDS: atenolol 25mg tablet PO SCH (20:59)
[2022-09-25 22:00] VITALS: BP 148/67
[2022-09-26 06:00] VITALS: BP 161/77
[2022-09-26 06:35] LABS: BASOPHILS # (AUTO) 0.1 X10'3 (0-0.2); BASOPHILS % (AUTO) 0.8 % (0-1); EOSINOPHILS # (AUTO) 0.3 X10'3 (0-0.9); EOSINOPHILS % (AUTO) 3.6 % (0-6); HEMATOCRIT 39.3 % (35.0-45.0); HEMOGLOBIN 12.6 g/dl (12.0-16.0); LYMPHOCYTES # (AUTO) 1.7 X10'3 (1.1-4.8); MEAN CORPUSCULAR HEMOGLOBIN 27.7 PG (27.0-31.0); MEAN CORPUSCULAR HGB CONC 32.1 g/dL (33.0-36.5); MEAN CORPUSCULAR VOLUME 86.3 FL (78-98); MONOCYTES # (AUTO) 0.8 X10'3 (0-0.9); NEUTROPHILS % (AUTO) 67.6 % (42-75); PLATELET COUNT 358 X10'3 (140-440); RED BLOOD COUNT 4.55 X10'6 (4.20-5.60); RED CELL DISTRIBUTION WIDTH 16.1 % (11.5-14.5); WHITE BLOOD COUNT 8.9 X10'3 (4.5-11.0)
--- NOTE | 2022-09-26 06:43 | NUR ---
Problems reprioritized. Patient report given, questions answered & plan of care reviewed with ZEE HI.
--- NOTE | 2022-09-26 06:48 | NUR ---
Patient in room [facility] 348. I have received report from Ludmila and had the opportunity to ask questions and assume patient care.
[2022-09-26 07:11] LABS: ALANINE AMINOTRANSFERASE 17 U/L (12-78); ALBUMIN 3.1 G/DL (3.4-5.0); ALBUMIN/GLOBULIN RATIO 0.9 (1.1-1.5); ALKALINE PHOSPHATASE 95 IU/L (46-116); ANION GAP 9 (8-16); ASPARTATE AMINO TRANSFERASE 24 U/L (10-37); BILIRUBIN,TOTAL 0.4 MG/DL (0.1-1.0); BLOOD UREA NITROGEN 24 MG/DL (7-18); CALCIUM 9.1 MG/DL (8.5-10.1); CHLORIDE 105 MMOL/L (99-107); GLUCOSE 101 MG/DL (70-104); POTASSIUM 3.7 MMOL/L (3.5-5.1); SODIUM 141 MMOL/L (135-145); TOTAL CARBON DIOXIDE 26.6 MMOL/L (24-32); TOTAL PROTEIN 6.6 G/DL (6.4-8.2); eGFR 44 ML/MIN
[2022-09-26] MEDS: clindamycin 150mg capsule PO SCH ×3 (09:00→20:43)
[2022-09-26] MEDS: pantoprazole 40mg Tablet.DR PO SCH ×2 (09:00→20:43)
[2022-09-26] MEDS: apixaban 5mg tablet PO SCH ×2 (09:00→20:44)
[2022-09-26] MEDS: amLODIPine 5mg tablet PO SCH (09:01)
[2022-09-26] MEDS: atorvastatin 20mg tablet PO SCH (09:01)
[2022-09-26] MEDS: sertraline 25mg tablet PO SCH (09:01)
[2022-09-26] MEDS: lisinopril 20mg tablet PO SCH (09:01)
[2022-09-26] MEDS: buPROPion SR 150mg tablet PO SCH ×2 (09:02→20:43)
[2022-09-26 11:00] VITALS: BP 135/53
[2022-09-26 18:00] VITALS: BP 110/45
--- NOTE | 2022-09-26 18:42 | NUR ---
Problems reprioritized. Patient report given, questions answered & plan of care reviewed with Angie RN.
[2022-09-26] MEDS: atenolol 25mg tablet PO SCH (20:43)
[2022-09-26 22:00] VITALS: BP 153/56
[2022-09-27 06:34] LABS: BASOPHILS % (AUTO) 0.4 % (0-1); EOSINOPHILS # (AUTO) 0.3 X10'3 (0-0.9); EOSINOPHILS % (AUTO) 3.1 % (0-6); HEMATOCRIT 39.7 % (35.0-45.0); HEMOGLOBIN 12.8 g/dl (12.0-16.0); LYMPHOCYTES # (AUTO) 1.3 X10'3 (1.1-4.8); MEAN CORPUSCULAR HGB CONC 32.1 g/dL (33.0-36.5); MONOCYTES # (AUTO) 0.7 X10'3 (0-0.9); MONOCYTES % (AUTO) 8.3 % (2-12); NEUTROPHILS # (AUTO) 6.2 X10'3 (1.8-7.7); NEUTROPHILS % (AUTO) 73.2 % (42-75); PLATELET COUNT 319 X10'3 (140-440); RED BLOOD COUNT 4.56 X10'6 (4.20-5.60); RED CELL DISTRIBUTION WIDTH 16.4 % (11.5-14.5); WHITE BLOOD COUNT 8.5 X10'3 (4.5-11.0)
--- NOTE | 2022-09-27 06:34 | NUR ---
Patient in room [facility] 348. I have received report from pat rn and had the opportunity to ask questions and assume patient care.
[2022-09-27 06:46] VITALS: BP 169/75
[2022-09-27 06:47] LABS: ALANINE AMINOTRANSFERASE 17 U/L (12-78); ALBUMIN 3.1 G/DL (3.4-5.0); ALBUMIN/GLOBULIN RATIO 0.9 (1.1-1.5); ALKALINE PHOSPHATASE 90 IU/L (46-116); ANION GAP 8 (8-16); ASPARTATE AMINO TRANSFERASE 23 U/L (10-37); BILIRUBIN,TOTAL 0.5 MG/DL (0.1-1.0); BLOOD UREA NITROGEN 18 MG/DL (7-18); BUN/CREATININE RATIO 17.1 (6.6-38.0); CALCIUM 9.2 MG/DL (8.5-10.1); CHLORIDE 106 MMOL/L (99-107); CREATININE 1.05 MG/DL (0.40-0.90); GLUCOSE 92 MG/DL (70-104); POTASSIUM 3.5 MMOL/L (3.5-5.1); SODIUM 142 MMOL/L (135-145); TOTAL PROTEIN 6.5 G/DL (6.4-8.2); eGFR 51 ML/MIN
--- NOTE | 2022-09-27 07:58 | NUR ---
Initial: Pt admit DX epigastric pain, cholelithiasis, HTN, heart failure, and chronic calcific mesenteritis w/ hx advanced dementia per EMR. Pt NPO initial day of admit mostly refusing first PO 09/24 however significantly improved past two days PO ~63% avg heart healthy meals up to 75% at times. If recent PO trends persist will be meeting estimated needs. LBM 09/25. Will monitor for further PO trends and nutrition intervention needs this admit. Rec: 1. continue heart healthy diet 2. monitor for PO trends and ONS needs 3. routine bowel care 4. scaled wt this admit; subsequent weekly wts Addendum: 09/27/22 at [address] Amended: Links added.
[2022-09-27] MEDS: apixaban 5mg tablet PO SCH (08:09)
[2022-09-27] MEDS: amLODIPine 5mg tablet PO SCH (08:09)
[2022-09-27] MEDS: pantoprazole 40mg Tablet.DR PO SCH (08:09)
[2022-09-27] MEDS: atorvastatin 20mg tablet PO SCH (08:09)
[2022-09-27] MEDS: clindamycin 150mg capsule PO SCH ×2 (08:09→13:11)
[2022-09-27] MEDS: lisinopril 20mg tablet PO SCH (08:10)
[2022-09-27] MEDS: sertraline 25mg tablet PO SCH (08:10)
[2022-09-27] MEDS: buPROPion SR 150mg tablet PO SCH (08:10)
[2022-09-27 10:00] VITALS: BP 155/60
[2022-09-27] MEDS ORDERED: ARIP2TAB20 PO (11:42)
--- NOTE | 2022-09-27 17:28 | NUR ---
PT DISCHARGED HOME IN STABLE CONDITION. LEFT FACILITY IN PRIVATE VEHICLE WITH DAUGHTER. NO IV. FOLLOW UP INSTRUCTIONS GIVEN, ALL QUESTIONS ANSWERED. ALL BELONGINGS IN HAND. Addendum: 09/27/22 at 1729 by Danielle Edmondson RN Amended: Links added.
[2022-10-02 08:59] LABS: OCCULT BLOOD STOOL NEGATIVE (Neg)
--- NOTE | 2022-10-05 11:08 | NUR ---
Case Management DC follow up: Spoke with Patient's daughter Darline, via telephone. S/P: Patient Reports: Denies: Acute/continuous C/P, emergent SOB,resp distress, dyspnea.Verbalizes having a dry cough,fatigue, and poor appetite.Denies: N/V, weakness, vertigo, syncope episodes, resp distress, DANIELS,blurry vision,s/s of stroke/BE-FAST, dysphagia, dysuria, hematuria, retention. Verbalizes abdomen is soft; however, Patient complains of mild discomfort .Denies: Hematochezia, melena, unexplained bruising, bleeding, fever, chills.Verbalizes [place] nurse has been out to see Patient.Verbalizes understanding of new Rx: why prescribed;continues/resumes current Rx as ordered.Verbalizes understanding of s/s that warrant a 9-11/ER visit for further evaluation. Verbalizes follow up appointment with PCP, Dr. Brown, scheduled 10/10/22. Verbalizes the care she received was wonderful. Needs met, questions/concerns addressed at DC. No further questions/concerns regarding recent hospital stay and/or DC status at this time.
[2022-10-06] MEDS ORDERED: ARIP2TAB20 PO (22:43)
[2022-10-06] MEDS ORDERED: LORA10TA7 PO (22:43)
[2022-10-07] MEDS ORDERED: APIX5TAB3 PO (11:06)
== END 2022-09-27 17:13 | disposition home health service (06) | DRG 445 ==
LOC: ER 13:09 → ED HOLD 20:13 → SUR 3N 09-23 19:40
PROVIDERS: ADMIT Family Medicine; ATTEND Internal Medicine
DX: K80.70 Calculus of gallbladder and bile duct without cholecystitis without obstruction (principal); D68.9 Coagulation defect, unspecified; I48.20 Chronic atrial fibrillation, unspecified; F03.93 Unspecified dementia, unspecified severity, with mood disturbance; I50.22 Chronic systolic (congestive) heart failure; I13.0 Hypertensive heart and chronic kidney disease with heart failure and stage 1 through stage 4 chronic kidney disease, or unspecified chronic kidney disease; I16.0 Hypertensive urgency; F41.9 Anxiety disorder, unspecified; E78.5 Hyperlipidemia, unspecified; N18.9 Chronic kidney disease, unspecified; E66.01 Morbid (severe) obesity due to excess calories; J44.9 Chronic obstructive pulmonary disease, unspecified; Z68.39 Body mass index [BMI] 39.0-39.9, adult; Z79.01 Long term (current) use of anticoagulants; Z86.14 Personal history of Methicillin resistant Staphylococcus aureus infection; Z87.11 Personal history of peptic ulcer disease; Z87.891 Personal history of nicotine dependence; Z79.899 Other long term (current) drug therapy; Z71.3 Dietary counseling and surveillance
CPT/HCPCS: 36415; 71045; 74176; 80053; 80305; 81001; 82272; 82550; 83605; 83690; 83735; 83880; 84100; 84145; 84484; 85025; 85610; 86885; 86900; 86901; 87040; 87077; 87081; 87186; 93005; 96365; 97116; 97161; 99285; C9113; G0378; J0744; J3490; J7030

== ENCOUNTER 2023-08-06 09:27 | Outpatient (CLI) | payer MEDICARE, MEDICAID ==
[~2023-08-06 09:27] MED LIST changes: -APIX5TAB3 PO; +ARIP2TAB20 PO; +ATEN-27 PO; -ATEN50TA8 PO; -BENA20TA82 PO; +CALC-995 PO; +FERR325T28 PO; -LACT1CAP26 PO; +LORA10TA7 PO; +MEMA5TAB42 PO; -NOR5T PO
[2023-08-06 10:10] LABS: BASOPHILS # (AUTO) 0.1 X10'3 (0-0.2); BASOPHILS % (AUTO) 1.3 % (0-1); EOSINOPHILS # (AUTO) 0.4 X10'3 (0-0.9); EOSINOPHILS % (AUTO) 5.3 % (0-6); HEMATOCRIT 34.7 % (35.0-45.0); LYMPHOCYTES # (AUTO) 1.3 X10'3 (1.1-4.8); LYMPHOCYTES % (AUTO) 18.1 % (21-51); MEAN CORPUSCULAR HEMOGLOBIN 24.8 PG (27.0-31.0); MEAN CORPUSCULAR HGB CONC 31.6 g/dL (33.0-36.5); MEAN CORPUSCULAR VOLUME 78.4 FL (78-98); MEAN PLATELET VOLUME 6.7 FL (7.4-10.4); MONOCYTES # (AUTO) 0.5 X10'3 (0-0.9); MONOCYTES % (AUTO) 7.2 % (2-12); NEUTROPHILS # (AUTO) 4.9 X10'3 (1.8-7.7); NEUTROPHILS % (AUTO) 68.1 % (42-75); PLATELET COUNT 334 X10'3 (140-440); RED BLOOD COUNT 4.43 X10'6 (4.20-5.60); WHITE BLOOD COUNT 7.2 X10'3 (4.5-11.0)
[2023-08-06 10:28] LABS: APTT 29 SECONDS (22-32); PROTHROMBIN TIME 11.1 SECONDS (9.0-12.0)
[2023-08-06 10:33] LABS: ALANINE AMINOTRANSFERASE 24 U/L (12-78); ALBUMIN 3.5 G/DL (3.4-5.0); ALKALINE PHOSPHATASE 104 IU/L (46-116); ANION GAP 4 (8-16); ASPARTATE AMINO TRANSFERASE 20 U/L (10-37); BILIRUBIN,TOTAL 0.4 MG/DL (0.1-1.0); BLOOD UREA NITROGEN 13 MG/DL (7-18); CALCIUM 9.5 MG/DL (8.5-10.1); CHLORIDE 106 MMOL/L (99-107); CREATININE 1.18 MG/DL (0.40-0.90); GLUCOSE 91 MG/DL (70-104); POTASSIUM 3.7 MMOL/L (3.5-5.1); SODIUM 142 MMOL/L (135-145); TOTAL CARBON DIOXIDE 32.3 MMOL/L (24-32); TOTAL PROTEIN 7.1 G/DL (6.4-8.2); eGFR 45 ML/MIN
[2023-08-06 10:39] LABS: PLATELET ESTIMATE NORMAL
[2023-08-06 10:40] LABS: ANISOCYTOSIS 3+; ELLIPTOCYTES FEW; MICROCYTOSIS 1+
[2023-08-06] MEDS ORDERED: IODIXANOL 320 MG/ML INFUS..BTL 100ML IV ONE ×2 (10:56→12:09)
[2023-08-13] MEDS ORDERED: MULT-1085 PO (11:32)
[2023-08-13] MEDS ORDERED: SOTA80TA PO (11:32)
[2023-08-13] MEDS ORDERED: DOCU-171 PO (11:32)
== END 2023-08-06 23:59 | disposition home or self-care (01) ==
LOC: RAD 09:27
PROVIDERS: ATTEND Student in an Organized Health Care Education/Training Program
DX: I77.89 Other specified disorders of arteries and arterioles (principal); I48.91 Unspecified atrial fibrillation; I48.92 Unspecified atrial flutter; I25.10 Atherosclerotic heart disease of native coronary artery without angina pectoris; M47.814 Spondylosis without myelopathy or radiculopathy, thoracic region
CPT/HCPCS: 75572; 80053; 85008; 85025; 85610; 85730; J3490; Q9967

== ENCOUNTER 2023-10-03 10:20 | Outpatient (CLI) | payer MEDICARE, MEDICAID ==
[~2023-10-03 10:20] MED LIST changes: -ATEN-27 PO; -CALC-995 PO; +CALC600T22 PO; +CLOP-32 PO; +DOCU-171 PO; +MULT-1085 PO; +PANT-47 PO; -PANT40TA54 PO; +SOTA80TA PO
[2023-10-03 10:55] LABS: BASOPHILS # (AUTO) 0.1 X10'3 (0-0.2); BASOPHILS % (AUTO) 1.2 % (0-1); EOSINOPHILS # (AUTO) 0.2 X10'3 (0-0.9); EOSINOPHILS % (AUTO) 4.2 % (0-6); HEMATOCRIT 39.8 % (35.0-45.0); HEMOGLOBIN 12.7 g/dl (12.0-16.0); MEAN CORPUSCULAR HEMOGLOBIN 26.3 PG (27.0-31.0); MEAN CORPUSCULAR HGB CONC 31.9 g/dL (33.0-36.5); MEAN CORPUSCULAR VOLUME 82.5 FL (78-98); MEAN PLATELET VOLUME 7.1 FL (7.4-10.4); MONOCYTES # (AUTO) 0.4 X10'3 (0-0.9); NEUTROPHILS # (AUTO) 3.6 X10'3 (1.8-7.7); NEUTROPHILS % (AUTO) 68.6 % (42-75); PLATELET COUNT 346 X10'3 (140-440); RED BLOOD COUNT 4.82 X10'6 (4.20-5.60); RED CELL DISTRIBUTION WIDTH 18.2 % (11.5-14.5); WHITE BLOOD COUNT 5.3 X10'3 (4.5-11.0)
[2023-10-03 11:11] LABS: ALANINE AMINOTRANSFERASE 20 U/L (12-78); ALBUMIN 3.4 G/DL (3.4-5.0); ALBUMIN/GLOBULIN RATIO 0.8 (1.1-1.5); ALKALINE PHOSPHATASE 122 IU/L (46-116); ANION GAP 8 (8-16); ASPARTATE AMINO TRANSFERASE 31 U/L (10-37); BILIRUBIN,TOTAL 0.4 MG/DL (0.1-1.0); BLOOD UREA NITROGEN 17 MG/DL (7-18); BUN/CREATININE RATIO 13.1 (10.0-20.0); CALCIUM 9.2 MG/DL (8.5-10.1); CHLORIDE 105 MMOL/L (99-107); GLUCOSE 98 MG/DL (70-104); SODIUM 140 MMOL/L (135-145); TOTAL CARBON DIOXIDE 27.3 MMOL/L (24-32); TOTAL PROTEIN 7.6 G/DL (6.4-8.2); eGFR 40 ML/MIN
[2023-10-03] MEDS ORDERED: iohexol 350MG/ML 100ml bottle IV ONE (11:44)
[2023-10-03 11:58] LABS: POTASSIUM 4.5 MMOL/L (3.5-5.1)
[2023-10-03 12:33] LABS: APTT 28 SECONDS (22-32); PROTHROMBIN TIME 10.9 SECONDS (9.0-12.0)
== END 2023-10-03 23:59 | disposition home or self-care (01) ==
LOC: 64 CT 10:20
PROVIDERS: ATTEND Student in an Organized Health Care Education/Training Program
DX: I48.91 Unspecified atrial fibrillation (principal); I70.0 Atherosclerosis of aorta; Z95.818 Presence of other cardiac implants and grafts; M47.814 Spondylosis without myelopathy or radiculopathy, thoracic region
CPT/HCPCS: 36415; 75574; 80053; 85025; 85610; 85730; J3490; Q9967; A6258

== ENCOUNTER 2023-11-15 10:54 | Emergency (ER) | payer MEDICARE, MEDICAID ==
[~2023-11-15] VITALS: Ht 170.2 cm; Wt 110.9 kg
[~2023-11-15 10:54] MED LIST changes: +ASPI-1265 PO; +EMPA10TA PO; +SACU1TAB PO
[2023-11-15 11:05] VITALS: BP 165/81; PULSE 87; RESP 16; TEMP 98.1; O2SAT 100
[2023-11-15 12:15] LABS: APTT 26 SECONDS (22-32); PROTHROMBIN TIME 10.3 SECONDS (9.0-12.0)
[2023-11-15 12:16] LABS: BASOPHILS # (AUTO) 0.1 X10'3 (0-0.2); BASOPHILS % (AUTO) 0.7 % (0-1); EOSINOPHILS # (AUTO) 0.3 X10'3 (0-0.9); EOSINOPHILS % (AUTO) 3.8 % (0-6); HEMATOCRIT 35.5 % (35.0-45.0); HEMOGLOBIN 11.3 g/dl (12.0-16.0); LYMPHOCYTES # (AUTO) 1.1 X10'3 (1.1-4.8); LYMPHOCYTES % (AUTO) 16.2 % (21-51); MEAN CORPUSCULAR HEMOGLOBIN 27.4 PG (27.0-31.0); MEAN CORPUSCULAR HGB CONC 31.9 g/dL (33.0-36.5); MEAN CORPUSCULAR VOLUME 85.9 FL (78-98); MEAN PLATELET VOLUME 6.9 FL (7.4-10.4); MONOCYTES # (AUTO) 0.5 X10'3 (0-0.9); MONOCYTES % (AUTO) 7.2 % (2-12); NEUTROPHILS % (AUTO) 72.1 % (42-75); PLATELET COUNT 317 X10'3 (140-440); RED BLOOD COUNT 4.14 X10'6 (4.20-5.60); RED CELL DISTRIBUTION WIDTH 17.3 % (11.5-14.5)
[2023-11-15 12:19] LABS: ALANINE AMINOTRANSFERASE 16 U/L (12-78); ALBUMIN 3.2 G/DL (3.4-5.0); ALBUMIN/GLOBULIN RATIO 0.8 (1.1-1.5); ALKALINE PHOSPHATASE 106 IU/L (46-116); ANION GAP 7 (8-16); ASPARTATE AMINO TRANSFERASE 24 U/L (10-37); BILIRUBIN,TOTAL 0.3 MG/DL (0.1-1.0); BLOOD UREA NITROGEN 29 MG/DL (7-18); BUN/CREATININE RATIO 23.8 (10.0-20.0); CHLORIDE 106 MMOL/L (99-107); CREATININE 1.22 MG/DL (0.40-0.90); GLUCOSE 81 MG/DL (70-104); POTASSIUM 4.2 MMOL/L (3.5-5.1); SODIUM 142 MMOL/L (135-145); TOTAL CARBON DIOXIDE 28.8 MMOL/L (24-32); TOTAL PROTEIN 7.3 G/DL (6.4-8.2); eCRCL 39 ML/MIN; eGFR 43 ML/MIN
== END 2023-11-15 18:38 | disposition left against medical advice (07) ==
LOC: ER 10:54
DX: K92.2 Gastrointestinal hemorrhage, unspecified (principal); Z53.21 Procedure and treatment not carried out due to patient leaving prior to being seen by health care provider
CPT/HCPCS: 36415; 71045; 80053; 85025; 85610; 85730; 86885; 93005; 99281; 99285

== ENCOUNTER 2023-11-21 16:08 | Outpatient (CLI) | payer MEDICARE, MEDICAID ==
[2023-11-21 16:56] LABS: BASOPHILS % (AUTO) 0.8 % (0-1); EOSINOPHILS # (AUTO) 0.1 X10'3 (0-0.9); EOSINOPHILS % (AUTO) 4.7 % (0-6); HEMATOCRIT 33.6 % (35.0-45.0); HEMOGLOBIN 10.8 g/dl (12.0-16.0); LYMPHOCYTES # (AUTO) 0.9 X10'3 (1.1-4.8); LYMPHOCYTES % (AUTO) 30.6 % (21-51); MEAN CORPUSCULAR HEMOGLOBIN 27.6 PG (27.0-31.0); MEAN CORPUSCULAR HGB CONC 32.3 g/dL (33.0-36.5); MEAN CORPUSCULAR VOLUME 85.4 FL (78-98); MEAN PLATELET VOLUME 6.8 FL (7.4-10.4); MONOCYTES # (AUTO) 0.3 X10'3 (0-0.9); MONOCYTES % (AUTO) 9.2 % (2-12); NEUTROPHILS # (AUTO) 1.7 X10'3 (1.8-7.7); NEUTROPHILS % (AUTO) 54.7 % (42-75); PLATELET COUNT 272 X10'3 (140-440); RED BLOOD COUNT 3.94 X10'6 (4.20-5.60); RED CELL DISTRIBUTION WIDTH 16.9 % (11.5-14.5); WHITE BLOOD COUNT 3.1 X10'3 (4.5-11.0)
[2023-11-21 17:05] LABS: ALANINE AMINOTRANSFERASE 32 U/L (12-78); ALBUMIN 3.2 G/DL (3.4-5.0); ALBUMIN/GLOBULIN RATIO 0.9 (1.1-1.5); ALKALINE PHOSPHATASE 102 IU/L (46-116); ANION GAP 8 (8-16); ASPARTATE AMINO TRANSFERASE 37 U/L (10-37); BILIRUBIN,TOTAL 0.2 MG/DL (0.1-1.0); BLOOD UREA NITROGEN 19 MG/DL (7-18); BUN/CREATININE RATIO 12.7 (10.0-20.0); CALCIUM 8.2 MG/DL (8.5-10.1); CHLORIDE 103 MMOL/L (99-107); GLUCOSE 104 MG/DL (70-104); POTASSIUM 3.9 MMOL/L (3.5-5.1); SODIUM 139 MMOL/L (135-145); TOTAL CARBON DIOXIDE 27.8 MMOL/L (24-32); TOTAL PROTEIN 6.9 G/DL (6.4-8.2); eGFR 34 ML/MIN
[2023-11-21 17:19] LABS: % IRON SATURATION 19 % (11-46); IRON 64 UG/DL (49-151); TOTAL IRON BINDING CAPACITY 342 UG/DL (259-388)
== END 2023-11-21 23:59 | disposition home or self-care (01) ==
LOC: LAB 16:08
PROVIDERS: ATTEND Nurse Practitioner Family
DX: K92.2 Gastrointestinal hemorrhage, unspecified (principal); D64.9 Anemia, unspecified
CPT/HCPCS: 36415; 80053; 83540; 83550; 85025

== ENCOUNTER 2023-12-10 18:27 | Emergency (ER) | payer MEDICARE, MEDICAID ==
[~2023-12-10] VITALS: Ht 170.2 cm; Wt 104.0 kg
[2023-12-10 20:35] VITALS: PULSE 84
[2023-12-10 22:07] VITALS: BP 170/83; RESP 18; TEMP 98.3; O2SAT 96
== END 2023-12-10 22:10 | disposition home or self-care (01) ==
LOC: ER 18:28
DX: M25.551 Pain in right hip (principal); I10 Essential (primary) hypertension; Z79.899 Other long term (current) drug therapy; Z79.82 Long term (current) use of aspirin; W19.XXXA Unspecified fall, initial encounter; Y93.89 Activity, other specified; Y92.89 Other specified places as the place of occurrence of the external cause; Y99.8 Other external cause status
CPT/HCPCS: 73502; 99283

== ENCOUNTER 2023-12-14 18:50 | Emergency (ER) | payer MEDICARE, MEDICAID ==
[~2023-12-14] VITALS: Ht 170.2 cm; Wt 136.4 kg
[2023-12-14 18:56] VITALS: BP 195/98; PULSE 90; RESP 16; TEMP 98.1; O2SAT 98
[2023-12-14] MEDS ORDERED: LIDO1ADH67 TOP (21:59)
[2023-12-14] MEDS: cyclobenzaprine 10mg tablet PO ONE (22:05)
== END 2023-12-14 22:08 | disposition home or self-care (01) ==
LOC: ER 18:50
DX: S39.012A Strain of muscle, fascia and tendon of lower back, initial encounter (principal); I10 Essential (primary) hypertension; Z79.899 Other long term (current) drug therapy; Z79.82 Long term (current) use of aspirin; W19.XXXA Unspecified fall, initial encounter; Y93.89 Activity, other specified; Y92.89 Other specified places as the place of occurrence of the external cause; Y99.8 Other external cause status
CPT/HCPCS: 72192; 99284

== ENCOUNTER 2023-12-28 12:01 | Emergency (ER) | payer MEDICARE, MEDICAID ==
[~2023-12-28] VITALS: Ht 170.2 cm; Wt 104.5 kg
[~2023-12-28 12:01] MED LIST changes: +LIDO1ADH67 TOP
[2023-12-28] MEDS ORDERED: ATOR20TA66 PO (17:36)
[2023-12-28] MEDS ORDERED: SERT-433 PO (17:36)
[2023-12-28] MEDS: HYDROcodone/acetaminophen 5mg/325mg tablet PO ONE ×2 (17:53→18:18)
[2023-12-28] MEDS ORDERED: HYDR-3965 PO (18:19)
[2023-12-28 18:40] VITALS: BP 170/82; PULSE 77; RESP 18; TEMP 98.4; O2SAT 97
== END 2023-12-28 18:44 | disposition home or self-care (01) ==
LOC: ER 12:02
DX: M62.81 Muscle weakness (generalized) (principal); M25.561 Pain in right knee; M25.562 Pain in left knee; I10 Essential (primary) hypertension; Z79.82 Long term (current) use of aspirin; Z79.899 Other long term (current) drug therapy
CPT/HCPCS: 99284

== ENCOUNTER 2024-03-22 11:27 | Inpatient (IN) | payer MEDICARE, MEDICAID ==
[~2024-03-22] VITALS: Ht 170.2 cm; Wt 109.7 kg
[~2024-03-22 11:27] MED LIST changes: -CALC600T22 PO; -DOCU-171 PO; +LACT1CAP76 PO; +LAN0.125T PO; -LIDO1ADH67 TOP; +MEMA5TAB15 PO; -MEMA5TAB42 PO; +METO-395 PO; -MULT-1085 PO; -SERT-432 PO; +SERT-433 PO; -SOTA80TA PO
[2024-03-22 12:56] LABS: ANION GAP 10 (8-16); BLOOD UREA NITROGEN 32 MG/DL (7-18); BUN/CREATININE RATIO 15.8 (10.0-20.0); CHLORIDE 108 MMOL/L (99-107); CREATININE 2.03 MG/DL (0.40-0.90); GLUCOSE 108 MG/DL (70-104); POTASSIUM 4.3 MMOL/L (3.5-5.1); SODIUM 144 MMOL/L (135-145); TOTAL CARBON DIOXIDE 25.9 MMOL/L (24-32)
[2024-03-22 12:57] LABS: ALBUMIN 3.4 G/DL (3.4-5.0); CALCIUM 8.6 MG/DL (8.5-10.1); eCRCL 24 ML/MIN; eGFR 24 ML/MIN
[2024-03-22 13:24] LABS: BASOPHILS # (AUTO) 0.1 X10'3 (0-0.2); BASOPHILS % (AUTO) 0.7 % (0-1); EOSINOPHILS # (AUTO) 0.2 X10'3 (0-0.9); HEMATOCRIT 33.4 % (35.0-45.0); HEMOGLOBIN 10.2 g/dl (12.0-16.0); LYMPHOCYTES % (AUTO) 10.5 % (21-51); MEAN CORPUSCULAR HEMOGLOBIN 24.8 PG (27.0-31.0); MEAN CORPUSCULAR HGB CONC 30.5 g/dL (33.0-36.5); MEAN CORPUSCULAR VOLUME 81.2 FL (78-98); MEAN PLATELET VOLUME 7.6 FL (7.4-10.4); MONOCYTES # (AUTO) 0.7 X10'3 (0-0.9); MONOCYTES % (AUTO) 7.2 % (2-12); NEUTROPHILS # (AUTO) 7.3 X10'3 (1.8-7.7); NEUTROPHILS % (AUTO) 79.6 % (42-75); PLATELET COUNT 352 X10'3 (140-440); RED BLOOD COUNT 4.11 X10'6 (4.20-5.60); RED CELL DISTRIBUTION WIDTH 18.4 % (11.5-14.5); WHITE BLOOD COUNT 9.1 X10'3 (4.5-11.0)
[2024-03-22 14:29] LABS: BILIRUBIN,URINE NEGATIVE (Neg); CLARITY,URINE CLEAR (Clear); COLOR,URINE YELLOW (Yellow); GLUCOSE, URINE 500 mg/dl (Neg); KETONES,URINE TRACE mg/dl (Neg); LEUKOCYTE ESTERASE ,URINE NEGATIVE (Neg); NITRITES, URINE NEGATIVE (Neg); OCCULT BLOOD,URINE NEGATIVE (Neg); PH,URINE 5.5 (4.8-8.0); PROTEIN,URINE 30 mg/dl (Neg)
[2024-03-22 14:33] LABS: UA COLLECTION TYPE NON-SPECIFIED
[2024-03-22 14:46] LABS: BACTERIA,URINE FEW /HPF (Neg); MUCUS STRANDS MODERATE /LPF (Neg); RBC,URINE 0-2 /HPF (0-2); SQUAMOUS EPITHELIAL CELL,UR MODERATE /LPF (FEW); WBC,URINE 0-4 /HPF (0-4)
[2024-03-22] MEDS: normal saline 1000ML IV soln IVB ONE (15:44)
[2024-03-22 17:11] LABS: PRO BRAIN NATRIURETIC PEPTIDE 17443 PG/ML (0-125)
[2024-03-22] MEDS: furosemide 10 MG/1 ML 10ml inj IV ONE (18:02)
[2024-03-22] MEDS: heparin, porcine 5000 units/ml vial SQ SCH (23:41)
[2024-03-22] MEDS: docusate sod 100mg capsule PO SCH (23:42)
[2024-03-23] MEDS ORDERED: CLOP75TA34 PO (02:28)
[2024-03-23] MEDS ORDERED: DIGO125T PO (02:43)
[2024-03-23] MEDS ORDERED: METO-395 PO (02:47)
[2024-03-23] MEDS: metoprolol succinate 25mg (24-HOUR) SR. Tablet PO ONE ×2 (04:06→04:15)
[2024-03-23] MEDS ORDERED: furosemide 10 MG/1 ML 10ml inj IV SCH (08:00)
[2024-03-23 09:20] VITALS: BP 120/58; PULSE 107; RESP 18; TEMP 97.5; O2SAT 97
[2024-03-23] MEDS: aspirin 81mg tab.chew PO SCH (09:47)
[2024-03-23] MEDS: memantine 5mg tablet PO SCH (09:47)
[2024-03-23] MEDS: digoxin 125mcg (0.125mg) tablet PO SCH (09:48)
[2024-03-23] MEDS: buPROPion SR 150mg tablet PO SCH (09:48)
[2024-03-23] MEDS: pantoprazole 40mg Tablet.DR PO SCH (09:48)
[2024-03-23] MEDS: EMPAGLIFLOZIN 10 MG TABLET PO SCH (09:48)
[2024-03-23] MEDS: clopidogrel 75mg tablet PO SCH (09:49)
[2024-03-23] MEDS: metoprolol succinate 25mg (24-HOUR) SR. Tablet PO SCH (09:49)
[2024-03-23] MEDS: furosemide 10 MG/1 ML 10ml inj IV SCH ×2 (09:50→19:33)
[2024-03-23] MEDS: atorvastatin 20mg tablet PO SCH (09:50)
[2024-03-23 09:54] LABS: BASOPHILS % (AUTO) 0.3 % (0-1); EOSINOPHILS # (AUTO) 0.2 X10'3 (0-0.9); LYMPHOCYTES # (AUTO) 0.8 X10'3 (1.1-4.8); LYMPHOCYTES % (AUTO) 10.3 % (21-51); MEAN PLATELET VOLUME 7.5 FL (7.4-10.4); MONOCYTES # (AUTO) 0.7 X10'3 (0-0.9); MONOCYTES % (AUTO) 9.1 % (2-12); NEUTROPHILS # (AUTO) 6.3 X10'3 (1.8-7.7); NEUTROPHILS % (AUTO) 78.3 % (42-75); PLATELET COUNT 341 X10'3 (140-440); RED CELL DISTRIBUTION WIDTH 18.2 % (11.5-14.5); WHITE BLOOD COUNT 8.1 X10'3 (4.5-11.0)
[2024-03-23 10:00] VITALS: RESP 12; O2SAT 96
[2024-03-23 10:14] LABS: ALBUMIN 3.5 G/DL (3.4-5.0); ANION GAP 11 (8-16); BLOOD UREA NITROGEN 26 MG/DL (7-18); BUN/CREATININE RATIO 16.4 (10.0-20.0); CALCIUM 8.8 MG/DL (8.5-10.1); CHLORIDE 107 MMOL/L (99-107); CREATININE 1.59 MG/DL (0.40-0.90); GLUCOSE 84 MG/DL (70-104); POTASSIUM 3.9 MMOL/L (3.5-5.1); SODIUM 141 MMOL/L (135-145); TOTAL CARBON DIOXIDE 23.5 MMOL/L (24-32); eCRCL 30 ML/MIN; eGFR 32 ML/MIN
[2024-03-23 10:30] VITALS: BP 119/77; PULSE 87; RESP 16; TEMP 97.3; O2SAT 95
[2024-03-23 10:45] LABS: HEMATOCRIT 32.9 % (35.0-45.0); HEMOGLOBIN 10.8 g/dl (12.0-16.0); MEAN CORPUSCULAR HEMOGLOBIN 25.9 PG (27.0-31.0); MEAN CORPUSCULAR HGB CONC 32.6 g/dL (33.0-36.5); MEAN CORPUSCULAR VOLUME 79.2 FL (78-98); RED BLOOD COUNT 4.16 X10'6 (4.20-5.60)
[2024-03-23] MEDS: sacubitril/valsartan 24mg-26mg tablet PO SCH (11:22)
[2024-03-23 18:00] VITALS: BP 146/91; PULSE 103; RESP 16; TEMP 97.7; O2SAT 97
[2024-03-23] MEDS: sertraline 50mg tablet PO SCH (20:59)
[2024-03-23] MEDS: loratadine 10mg tablet PO SCH (20:59)
[2024-03-23 21:01] VITALS: BP 131/82; PULSE 87
[2024-03-23 22:12] VITALS: BP 132/81; PULSE 116; RESP 15; TEMP 98.1; O2SAT 97
[2024-03-24 01:58] VITALS: BP 126/90; PULSE 90; RESP 16; TEMP 97.8; O2SAT 97
[2024-03-24] MEDS: metoprolol succinate 25mg (24-HOUR) SR. Tablet PO SCH ×2 (07:40→19:23)
[2024-03-24 07:55] LABS: BASOPHILS # (AUTO) 0.1 X10'3 (0-0.2); BASOPHILS % (AUTO) 0.7 % (0-1); EOSINOPHILS # (AUTO) 0.3 X10'3 (0-0.9); EOSINOPHILS % (AUTO) 2.8 % (0-6); HEMATOCRIT 37.1 % (35.0-45.0); HEMOGLOBIN 11.4 g/dl (12.0-16.0); LYMPHOCYTES # (AUTO) 0.9 X10'3 (1.1-4.8); LYMPHOCYTES % (AUTO) 10.7 % (21-51); MEAN CORPUSCULAR HEMOGLOBIN 24.3 PG (27.0-31.0); MEAN CORPUSCULAR HGB CONC 30.8 g/dL (33.0-36.5); MEAN CORPUSCULAR VOLUME 78.9 FL (78-98); MEAN PLATELET VOLUME 7.5 FL (7.4-10.4); MONOCYTES # (AUTO) 0.7 X10'3 (0-0.9); MONOCYTES % (AUTO) 8.1 % (2-12); NEUTROPHILS # (AUTO) 6.9 X10'3 (1.8-7.7); NEUTROPHILS % (AUTO) 77.7 % (42-75); PLATELET COUNT 427 X10'3 (140-440); RED BLOOD COUNT 4.69 X10'6 (4.20-5.60); WHITE BLOOD COUNT 8.9 X10'3 (4.5-11.0)
[2024-03-24 08:23] LABS: ALBUMIN 3.6 G/DL (3.4-5.0); ANION GAP 11 (8-16); BLOOD UREA NITROGEN 22 MG/DL (7-18); BUN/CREATININE RATIO 13.7 (10.0-20.0); CHLORIDE 103 MMOL/L (99-107); CREATININE 1.61 MG/DL (0.40-0.90); GLUCOSE 98 MG/DL (70-104); MAGNESIUM 1.7 MG/DL (1.5-2.4); POTASSIUM 3.4 MMOL/L (3.5-5.1); SODIUM 142 MMOL/L (135-145); eCRCL 30 ML/MIN; eGFR 31 ML/MIN
[2024-03-24 10:00] VITALS: BP 127/55; PULSE 120; RESP 18; TEMP 98.4; TEMP 98.8; O2SAT 95
[2024-03-24] MEDS ORDERED: potassium chloride 8mEq ER tablet PO SCH (10:00)
[2024-03-24] MEDS: potassium Cl 20 mEq SR tablet PO SCH (11:01)
[2024-03-24] MEDS: potassium Cl 20 mEq SR tablet PO ONE (14:09)
[2024-03-24] MEDS: acetaminophen 325mg tablet PO PRN (14:29)
[2024-03-24 17:30] VITALS: BP 130/85; PULSE 116; RESP 15; TEMP 98; O2SAT 97
[2024-03-24 22:00] VITALS: BP 121/79; PULSE 105; RESP 15; TEMP 97; O2SAT 97
[2024-03-24] MEDS: HYDROcodone/acetaminophen 5mg/325mg tablet PO PRN (22:02)
[2024-03-25 06:00] VITALS: BP 101/69; PULSE 111; RESP 15; TEMP 97.6; O2SAT 96
[2024-03-25 07:15] LABS: BASOPHILS % (AUTO) 0.8 % (0-1); EOSINOPHILS # (AUTO) 0.4 X10'3 (0-0.9); EOSINOPHILS % (AUTO) 5.7 % (0-6); LYMPHOCYTES # (AUTO) 1.1 X10'3 (1.1-4.8); LYMPHOCYTES % (AUTO) 16.3 % (21-51); MEAN PLATELET VOLUME 7.6 FL (7.4-10.4); MONOCYTES # (AUTO) 0.7 X10'3 (0-0.9); MONOCYTES % (AUTO) 11.3 % (2-12); NEUTROPHILS # (AUTO) 4.3 X10'3 (1.8-7.7); NEUTROPHILS % (AUTO) 65.9 % (42-75); PLATELET COUNT 365 X10'3 (140-440); RED BLOOD COUNT 4.45 X10'6 (4.20-5.60); RED CELL DISTRIBUTION WIDTH 17.8 % (11.5-14.5); WHITE BLOOD COUNT 6.5 X10'3 (4.5-11.0)
[2024-03-25 07:40] LABS: ALBUMIN 3.1 G/DL (3.4-5.0); ANION GAP 10 (8-16); BLOOD UREA NITROGEN 21 MG/DL (7-18); BUN/CREATININE RATIO 14.2 (10.0-20.0); CALCIUM 8.6 MG/DL (8.5-10.1); CHLORIDE 104 MMOL/L (99-107); CREATININE 1.48 MG/DL (0.40-0.90); GLUCOSE 92 MG/DL (70-104); MAGNESIUM 1.8 MG/DL (1.5-2.4); POTASSIUM 3.7 MMOL/L (3.5-5.1); SODIUM 142 MMOL/L (135-145); TOTAL CARBON DIOXIDE 28.2 MMOL/L (24-32); eCRCL 32 ML/MIN; eGFR 34 ML/MIN
[2024-03-25 07:44] LABS: HEMATOCRIT 33.9 % (35.0-45.0); HEMOGLOBIN 10.7 g/dl (12.0-16.0); MEAN CORPUSCULAR HEMOGLOBIN 24.8 PG (27.0-31.0); MEAN CORPUSCULAR HGB CONC 31.7 g/dL (33.0-36.5); MEAN CORPUSCULAR VOLUME 78.2 FL (78-98)
[2024-03-25] MEDS: furosemide 10 MG/1 ML 10ml inj IV SCH (07:48)
[2024-03-25 10:00] VITALS: BP 115/49; PULSE 97; RESP 18; TEMP 97.4; O2SAT 93
[2024-03-25] MEDS ORDERED: METO100T7 PO (10:03)
[2024-03-25] MEDS ORDERED: FURO-150 PO (10:03)
[2024-03-25] MEDS ORDERED: POTA-205 PO (10:03)
== END 2024-03-25 14:22 | disposition home health service (06) | DRG 682 ==
LOC: ER 11:28 → ED HOLD 17:22 → ORTHO 4S 03-23 08:21
PROVIDERS: ADMIT Internal Medicine; ATTEND Internal Medicine
DX: N17.9 Acute kidney failure, unspecified (principal); I50.43 Acute on chronic combined systolic (congestive) and diastolic (congestive) heart failure; I13.0 Hypertensive heart and chronic kidney disease with heart failure and stage 1 through stage 4 chronic kidney disease, or unspecified chronic kidney disease; I48.91 Unspecified atrial fibrillation; N18.30 Chronic kidney disease, stage 3 unspecified; E86.0 Dehydration; E78.5 Hyperlipidemia, unspecified; G30.9 Alzheimer's disease, unspecified; Z66 Do not resuscitate; E11.22 Type 2 diabetes mellitus with diabetic chronic kidney disease; E87.6 Hypokalemia; F02.80 Dementia in other diseases classified elsewhere, unspecified severity, without behavioral disturbance, psychotic disturbance, mood disturbance, and anxiety; Z79.82 Long term (current) use of aspirin; Z79.01 Long term (current) use of anticoagulants; Z79.899 Other long term (current) drug therapy; Z95.818 Presence of other cardiac implants and grafts
CPT/HCPCS: 36415; 71045; 80048; 80162; 81001; 83735; 83880; 84484; 85025; 87081; 92508; 92616; 93005; 93306; 97161; 97530; 99285; A6154; A6250; C1758; G0378; J1644; J1940; J7030